=== PATIENT | female | born 1995 | race Caucasian/White ===

== ENCOUNTER 2024-08-19 10:31 | Emergency (ER) | payer MEDICAID, SELFPAY ==
[2024-08-19 10:57] VITALS: BP 123/84; PULSE 99; RESP 18; TEMP 37.5; O2SAT 96; BMI 35.2
--- NOTE | 2024-08-19 11:03 | EDNOTE_ITS ---
Upper Respiratory Inf. RME/HPI General Chief Complaint: Flu Like Symptoms Stated Complaint: diff. breathing, cough, bodyaches x 5 days Time Seen by Provider: 08/19/24 10:59 Arrival date/time: 08/19/24 10:31 This is a case of 28-year-old female who came in in the emergency room due to cough generalized body ache for 1 week become worse 5 days prior to arrival in the emergency room patient also noted to have postnasal drip nasal congestion and sinus pain due to worsening of the symptoms now with shortness of breath and wheezing today thus patient decided to start consult here in the emergency room Limitations: no limitations Related Data Previous Rx's ?Medication ?Instructions ?Recorded albuterol sulfate 90 mcg/actuation 2 puff inhalation Q 6H PRN 08/19/24 aerosol inhaler (Ventolin HFA) shortness of breath or wheezing #8.5 grams amoxicillin 875 mg-potassium 1 tab PO Q12H 10 days #20 tabs 08/19/24 clavulanate 125 mg tablet fluticasone propionate 50 1 spray intranasal BID #16 g saravanan 08/19/24 mcg/actuation nasal spray,suspension (Flonase Allergy Relief) prednisone 20 mg tablet 20 mg PO QDAY 5 days #5 tabs 08/19/24 Allergies Allergy/AdvReac Type Severity Reaction Status Date / Time clindamycin Allergy Intermediate Hives Verified 08/19/24 10:32 Review of Systems Review of Systems Systems Reviewed: All systems reviewed, normal except as documented Constitutional Constitutional: Reports system reviewed and no additional complaints, except as documented, Reports body ache(s), Denies chills, Denies fatigue, Denies fever(s) and Denies headache(s) ENT Ears, Nose, Mouth, and Throat: Reports system reviewed and no additional complaints, except as documented, Reports as per HPI, Denies dental pain, Denies dizziness, Denies ear discharge, Denies otalgia, Denies epistaxis, Reports facial pain, Denies headache(s), Reports nasal discharge, Denies nasal obstruction, Denies nasal trauma, Denies neck pain, Denies odynophagia, Reports post nasal drip, Reports sinus pain, Reports sinus pressure, Denies sore throat, Denies throat swelling, Denies tinnitus, Denies tongue swelling and Denies vertigo Cardiovascular Cardiovascular: Reports dyspnea Respiratory Respiratory: Reports system reviewed and no additional complaints, except as documented, Reports as per HPI, Reports cough, Reports dyspnea and Reports wheezing Gastrointestinal Gastrointestinal: Reports system reviewed and no additional complaints, except as documented and Denies odynophagia Genitourinary Genitourinary: Reports system reviewed and no additional complaints, except as documented Musculoskeletal Musculoskeletal: Reports system reviewed and no additional complaints, except as documented and Denies neck pain Neurologic Neurologic: Reports system reviewed and no additional complaints, except as documented, Denies dizziness, Denies headache(s) and Denies vertigo Endocrine Endocrine: Denies fatigue Allergic/Immunologic Allergic/Immunologic: Denies throat swelling, Denies tongue swelling and Reports wheezing Past Medical History Past Medical History NEUROLOGIC: Negative Neurological Disorders CARDIAC: Negative Cardiac Disorders or Congestive Heart Failure RESPIRATORY: Positive Asthma; Negative Chronic Obstructive Pulmonary Disease (COPD), Bronchitis, Emphysema, Pneumonia, Pulmonary Fibrosis, Cystic Fibrosis, Tuberculosis, Pulmonary Embo lism, Pulmonary Edema or Sleep Apnea GASTROINTESTINAL: Negative Gastrointestinal Disorders, Hepatitis or Colorectal Cancer GENITOURINARY: Negative Genitourinary Disorders, Renal Disease or Prostate Ca ncer REPRODUCTIVE: Negative Breast Cancer or Testicular Cancer MUSCULOSKELETAL: Negative Musculoskeletal Disorders or Bone Cancer ENDOCRINE: Positive Endocrine Disorders and Hypothyroidism; Negative Diabetes Mellitus Type 1, Diabetes Mellitus Type 2, Hypoglycemia, Ryan's Syndrome, Luc's Disease, Hyperthyroidism, Parathyroid Disease, Pituitary Disease, Systemic Lupus Erythematosus, Syndrome of Inappropriate Antidiuretic Hormone (SIADH), Adrenal Disease or Graves' Disease HEMATOLOGIC: Negative Blood Disorders PSYCHO/SOCIAL: Positive Depression (pt reports undiagnosed) OTHER HISTORY: Negative Hospitalization, Autoimmune Disease, Down Syndrome, Developmental Delay, Shingles, Falls, Blood Transfusions, Blood Transfusion Reaction, Anesthesia Reactions, Organ Transplant, Chemotherapy, Radiation Therapy, Hyperbaric Therapy, MRSA, VRSA, Vancomycin-Resistant Enterococci, Human Immunodeficiency Virus (HIV), Chicken Pox, Measles, Mumps, Rubella (Tajik Measles), Pertussis, Clostridium Difficile, Cancer, Breast Cancer, Cervical Cancer, Colorectal Cancer, Lung Cancer, Ovarian Cancer, Prostate Cancer or Testicular Cancer Family History FAMILY HISTORY: Positive Family Psychiatric Problems (sister anxiety depression), Family Respiratory Disorders (mother covid pneumonia), Family Gastrointestinal Problems (mother gall bladder) and Family Cancer (aunts x 3 breast cancer); Negative Family Cardiac Disorders, Family Surgery or Family Anesthesia Reaction Surgical History SURGICAL: Negative Endocrine Surgery, Ear Surgery, Abdominal Surgery, Nephrectomy, Joint Replacement, Section or Organ Transplant Social History SMOKING STATUS: Never smoker SECOND HAND EXPOSURE: No ED Exam General Limitations: Present no limitations General appearance: Present alert and in no apparent distress; Absent appears intoxicated Head Head exam: Present atraumatic Eye Eye exam: Present normal appearance, PERRL and EOMI ENT ENT exam: Present normal exam, normal oropharynx, mucous membranes moist and TM's normal bilaterally Expanded ENT Exam Nose exam: Present sinus tenderness; Absent nasal deviation, crepitus or septal hematoma Nasal speculum exam: Bilateral: purulent discharge and other (Noted to have moderate tenderness on the frontal and maxillary sinus purulent discharge nostrils and turbinates are both swollen and erythematous no nasal polyps no nasal deviation) Mouth exam: Present normal external inspection Throat exam: Present normal inspection Neck Neck exam: Present normal inspection, full ROM and trachea midline; Absent tenderness, meningismus, lymphadenopathy or thyromegaly Chest Chest inspection: Present normal inspection and symmetric chest wall rise Respiratory Respiratory exam: Present normal lung sounds bilaterally and wheezes (Mild wheezing right lower lung no crackles no rales no retraction no stridor); Absent respiratory distress, stridor, accessory muscle use or prolonged expiratory phase Cardiovascular Cardiovascular exam: Present regular rate, normal rhythm and normal heart sounds; Absent bradycardia, tachycardia, systolic murmur or diastolic murmur Abdominal Exam Abdominal exam: Present soft and normal bowel sounds; Absent distention, tenderness, guarding, rebound or rigidity Extremities Exam Extremities exam: Present normal inspection and full ROM Back Exam Back exam: Present normal inspection and full ROM Neurological Exam Neurological exam: Present alert, oriented X3, CN II-XII intact, normal gait and reflexes normal; Absent motor sensory deficit Psychiatric Psychiatric exam: Present normal affect and normal mood Skin Skin exam: Present warm, dry, intact and normal color Course Quality Measures none Orders Category Date Time Status Albuterol/Ipratr Rt Francine [Duoneb Rt Francine] Med 08/19/24 11:00 Discontinued 3 ml INH X1 ONE MethylPREDNISolone.* [SoluMEDROL Inj] Med 08/19/24 11:00 Discontinued 125 mg IM X1 ONE Vital Signs Vital signs: Vital Signs Temperature 99.5 F 08/19/24 10:57 Pulse Rate 99 08/19/24 10:57 Respiratory Rate 18 08/19/24 10:57 Blood Pressure 123/84 08/19/24 10:57 Pulse Oximetry (%) 96 08/19/24 10:57 Oxygen Delivery Method Room Air 08/19/24 10:57 Patient is afebrile not tachycardic not tachypneic vital signs stable not hypoxic oxygen saturation in room air Upper Respiratory Infection MDM Narrative MDM Narrative:: This is a case of 28-year-old female who came in in the emergency room due to cough generalized body ache for 1 week become worse 5 days prior to arrival in the emergency room patient also noted to have postnasal drip nasal congestion and sinus pain due to worsening of the symptoms now with shortness of breath and wheezing today thus patient decided to start consult here in the emergency room patient is awake alert oriented not in distress not toxic afebrile not tachycardic not tachypneic not hypoxic oxygen saturation is normal in room air patient lung sounds noted wheezing right lower lung field no crackles no rales no retraction no stridor HEENT exam is normal except nasal exam noted to have frontal maxillary sinus tenderness with redness and swelling both nostrils and turbinate no nasal polyps no septal deviation the rest of the physical examination and neurological exam is normal and unremarkable at this point patient was treated as an asthmatic bronchitis patient was given a Solu-Medrol 125 mg IM and breathing treatment of DuoNeb patient was reassessed after 30 minutes of the medication patient is not in distress no shortness of breath no wheezing lung sounds is clear no crackles no rales no retraction no stridor patient is not hypoxic at the time of the exam patient is no signs and symptoms of sepsis dehydration or hypoxia patient will be discharged home with stable co ndition patient will also be discharged with acute sinus infection.the patient was given Augmentin to be taken for 10 days and Flonase for sinusitis patient was also given Ventolin inhaler and prednisone for acute bronchitis patient will continue her promethazine as directed by her primary care physician patient understood very well the discharge instruction and agreed with the treatment plan and discharge Patient was discharged with comfortable condition walking with stable gait. Patient verbalized no further complains explained diagnosis and answered patient question. Patient is comfortable with the proposed management plan including the need to follow up with his/her primary care physician and any specialist if applicable Discussed patient for any urgent condition or worsening sx, He/She needed to go to emergency room immediately or call 911. Patient acknowledge the responsibility to follow up as instructed and to monitor her/his symptoms. For any persistence of the symptoms for more than 3-5 days return precaution advised. Discussed the result of the test and was given printed discharge instruction Patient data External records reviewed:: [facility] previous records Clinical information provided by:: patient Social determinants that could affect healthcare access:: none Patient has the following chronic illnesses:: None How is presenting disease/condition affected by chronic disease/condition?: no chronic disease Evaluation data The following diagnostics were reviewed and interpreted by me:: other (specify) Lab and/or radiology exams considered but not ordered:: None Interpretation Summary: None Medications / Prescriptions Medications or Prescriptions considered but not ordered:: Given Medication administrations:: Medication Administration History Discontinued Medications Albuterol/Ipratropium (Albuterol/Ipratropium (Duoneb) Rt Francine 3 Ml Nebu) 3 ml INH X1 ONE Stop: 08/19/24 11:01 Methylprednisolone Sodium Succinate (Methylprednisolone Sod Succ 62.5 Mg/Ml 2ml Vial) 125 mg IM X1 ONE Stop: 08/19/24 11:01 Last Admin: 08/19/24 11:04 Dose: 125 mg Documented By: MF Given Consultations Consultation(s) initiated? (list below): No Diagnosis Upper Respiratory Differential Diagnosis: upper respiratory infection, sinusitis, viral infection, bronchitis and pharyngitis Most likely diagnosis given after review of the tests above:: Asthmatic bronchitis sinusitis Admission Indicated Admission indicated?: not indicated Explain why admission is indicated or not indicated:: None Admission Request Was there a request for admission?: No Admission Attestation Admission request attestation: None Disposition Plan Disposition Plan: Discharge Discharge Attestation Discharge Attestation: The patient and all family members were given an opportunity to ask questions and understood the discharge instructions. Discharge instructions specifically effects, indications for sooner follow up or return to the emergency department, and the expected course of current diagnosis. Patient condition: Stable Discharge Plan Plan Patient Disposition: HOME (Self Care) Patient condition on transfer: Stable Prescriptions/Referrals Prescriptions/Med Rec: New amoxicillin-pot clavulanate 875-125 mg tablet 1 tab PO Q12H 10 Days Qty: 20 0RF prednisone 20 mg tablet 20 mg PO QDAY 5 Days Qty: 5 0RF Rx Instructions: Start tomorrow albuterol sulfate [Ventolin HFA] 90 mcg/actuation HFA aerosol inhaler 2 puff inhalation Q6H PRN (Reason: shortness of breath or wheezing) Qty: 8.5 0RF fluticasone propionate [Flonase Allergy Relief] 50 mcg/actuation spray,suspension 1 spray intranasal BID Qty: 16 0RF Rx Instructions: administer into each nostril Problem List Clinical Impression: AB (asthmatic bronchitis), Acute infection of sinus Patient/Caregiver Discharge Instructions Education Materials: Asthma Action Plan, ED Sinusitis (Antibiotic Treatment), Asthma Additional Instructions: Follow-up with your primary care physician in 2 days for reevaluation and to be referred to metalsmith helper for further evaluation and treatment of recurrent asthma recurrence worsening symptoms or any emergent concern return to the emergency room immediately or call 911 increase water intake keep hydrated finish the course of antibiotic stimulation is advised Print Language: Cuban Stand Alone Forms: Mae Award Info., Patient Portal Info Letter PA/[facility] PRACTICE RN Supervising Physician PA/[facility]ACT[facility] RN Supervising Physician: dr nolan
[2024-08-19] MEDS: MethylPREDNISolone SOD SUCC 62.5 MG/ML 2ML VIAL 125 MG IM (11:04)
[2024-08-19] MEDS: ALBUTEROL/IPRATROPIUM (Duoneb) RT SOL 3 ML NEBU INH (11:16)
[2024-08-19 11:18] VITALS: PULSE 97; RESP 18; O2SAT 97
== END 2024-08-19 11:30 | disposition home or self-care (01) ==
LOC: SERX 11:32
PROVIDERS: Emergency Provider Family Medicine; PCP Family Medicine
DX: J45.909 Unspecified asthma, uncomplicated (principal); J01.80 Other acute sinusitis
CPT/HCPCS: 94640; 96372; 99283; A9270; J2919